=== PATIENT | male | born 1980 | race Caucasian/White ===

== ENCOUNTER 2016-08-26 16:07 | Emergency (ER) | payer SELFPAY ==
[2016-08-26 16:20] VITALS: RESP 18
[2016-08-26] MEDS ORDERED: ACETAMINOPHEN 325 MG TAB PO ONE (16:35)
[2016-08-26] MEDS ORDERED: IBUPROFEN 600 MG TAB PO ONE (16:35)
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
[2016-08-26] MEDS ORDERED: LETS SOLN TOPICAL 1 EA SYR TP ONE ×2 (16:36)
--- NOTE | 2016-08-26 17:00 | CPEKG ---
Heart Rate: 81 RR Interval: 741 P-R Interval: 156 QRSD Interval: 86 QT Interval: 364 QTC Interval: 423 P [place]: 69 QRS [place]: 67 T Wave [place]: 24 EKG Severity - NORMAL ECG - EKG Impression: SINUS RHYTHM Electronically Signed By: Shamir López 26-Aug-2016 17:01:05
[2016-08-26 17:03] LABS: % IMMATURE GRANULYOCYTES 0.2 % (0.0-1.1); ABSOLUTE IMMATURE GRANULOCYTES 0.01 10^3/uL (0.00-0.10); ADD DIFF? NO; ADD MORPH? NO; ADD SCAN? NO; ATYPICAL LYMPHOCYTE FLAG 10 (0-99); FRAGMENT RBC FLAG 0 (0-99); HEMATOCRIT 49.8 % (40.0-51.0); HEMOGLOBIN 17.1 g/dL (13.7-17.5); LEFT SHIFT FLG 0 (0-99); LIPEMIA HEMOLYSIS FLAG 90 (0-99); MEAN CELL HEMOGLOBIN 29.3 pg (27.9-34.1); MEAN CELL HEMOGLOBIN CONCENTR. 34.3 g/dL (32.4-36.7); MEAN CELL VOLUME 85.4 fL (81.5-99.8); MEAN PLATELET VOLUME 9.3 fL (8.7-11.7); PLATELET CLUMPS FLAG 0 (0-99); PLATELET COUNT 226 10^3/uL (150-400); RED BLOOD CELL COUNT 5.83 10^6/uL (4.40-6.38); RED CELL DISTRIBUTION WIDTH 13.2 % (11.5-15.2)
[2016-08-26 17:15] LABS: ANION GAP 18 mEq/L (8-16); CALCIUM 9.1 mg/dL (8.5-10.4); CARBON DIOXIDE 19 mEq/l (22-31); CHLORIDE 110 mEq/L (97-110); CREATININE 0.8 mg/dL (0.7-1.3); GLOMERULAR FILTRATION RATE > 60; GLUCOSE 82 mg/dL (70-100); POTASSIUM 4.2 mEq/L (3.5-5.2); SODIUM 147 mEq/L (134-144)
[2016-08-27 09:32] VITALS: BP 146/92; PULSE 98; TEMP 98.2; O2SAT 97
== END 2016-08-26 17:40 | disposition home or self-care (01) ==
DX: T21.22XA Burn of second degree of abdominal wall, initial encounter (principal); S00.81XA Abrasion of other part of head, initial encounter; F17.200 Nicotine dependence, unspecified, uncomplicated; W01.0XXA Fall on same level from slipping, tripping and stumbling without subsequent striking against object, initial encounter
CPT/HCPCS: 82947-QW

== ENCOUNTER 2016-12-25 15:29 | Emergency (ER) | payer MEDICAID ==
[2016-12-25] MEDS ORDERED: CEPHALEXIN 500 MG CAP PO ONE (15:56)
[2016-12-25 15:57] VITALS: BP 123/92; PULSE 115; RESP 16; TEMP 98.4; O2SAT 92
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
== END 2016-12-25 16:22 | disposition home or self-care (01) ==
LOC: CED 15:29
DX: T80.89XA Other complications following infusion, transfusion and therapeutic injection, initial encounter (principal); L03.114 Cellulitis of left upper limb; F17.200 Nicotine dependence, unspecified, uncomplicated; Y82.8 Other medical devices associated with adverse incidents

== ENCOUNTER 2017-03-03 04:42 | Emergency (ER) | payer MEDICAID ==
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
[2017-03-03] MEDS ORDERED: SKIN ADHESIVE (DERMABOND) 1 EACH TP ONE (06:03)
[2017-03-03 06:33] VITALS: BP 121/78; PULSE 84; RESP 16; TEMP 98.1; O2SAT 96
== END 2017-03-03 06:32 | disposition home or self-care (01) ==
LOC: EDUNIT#
PROC: 0HQ1XZZ Repair Face Skin, External Approach (ICD-10-PCS; principal; 2017-03-03)
DX: S01.81XA Laceration without foreign body of other part of head, initial encounter (principal); S16.1XXA Strain of muscle, fascia and tendon at neck level, initial encounter; W01.198A Fall on same level from slipping, tripping and stumbling with subsequent striking against other object, initial encounter; Y92.59 Other trade areas as the place of occurrence of the external cause; Y99.8 Other external cause status; F10.921 Alcohol use, unspecified with intoxication delirium; F19.10 Other psychoactive substance abuse, uncomplicated; F17.200 Nicotine dependence, unspecified, uncomplicated

== ENCOUNTER 2017-04-03 16:40 | Emergency (ER) | payer MEDICAID, OTHER ==
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
[2017-04-03 16:45] VITALS: TEMP 97.9
--- NOTE | 2017-04-03 17:32 | CPEKG ---
Heart Rate: 73 RR Interval: 822 P-R Interval: 136 QRSD Interval: 82 QT Interval: 416 QTC Interval: 459 P [place]: 71 QRS [place]: 72 T Wave [place]: 6 EKG Severity - NORMAL ECG - EKG Impression: SINUS RHYTHM Electronically Signed By: Elizabeth yL 03-Apr-2017 23:02:15
[2017-04-03 17:35] LABS: % IMMATURE GRANULYOCYTES 0.3 % (0.0-1.1); ABSOLUTE IMMATURE GRANULOCYTES 0.02 10^3/uL (0.00-0.10); ADD DIFF? NO; ADD MORPH? NO; ADD SCAN? NO; ATYPICAL LYMPHOCYTE FLAG 10 (0-99); FRAGMENT RBC FLAG 0 (0-99); HEMOGLOBIN 14.8 g/dL (13.7-17.5); LEFT SHIFT FLG 0 (0-99); LIPEMIA HEMOLYSIS FLAG 80 (0-99); MEAN CELL HEMOGLOBIN 29.1 pg (27.9-34.1); MEAN CELL HEMOGLOBIN CONCENTR. 33.6 g/dL (32.4-36.7); MEAN CELL VOLUME 86.6 fL (81.5-99.8); MEAN PLATELET VOLUME 9.1 fL (8.7-11.7); PLATELET CLUMPS FLAG 20 (0-99); PLATELET COUNT 254 10^3/uL (150-400); RED BLOOD CELL COUNT 5.08 10^6/uL (4.40-6.38); RED CELL DISTRIBUTION WIDTH 13.4 % (11.5-15.2)
[2017-04-03 17:47] LABS: ANION GAP 11 mEq/L (8-16); CALCIUM 9.6 mg/dL (8.5-10.4); CARBON DIOXIDE 26 mEq/l (22-31); CHLORIDE 101 mEq/L (97-110); CREATININE 0.7 mg/dL (0.7-1.3); GLOMERULAR FILTRATION RATE > 60; GLUCOSE 105 mg/dL (70-100); SODIUM 138 mEq/L (134-144)
[2017-04-03 17:59] LABS: TROPONIN I < 0.012 ng/mL (0.000-0.034)
[2017-04-03] MEDS ORDERED: IBUPROFEN 600 MG TAB PO ONE (19:02)
[2017-04-03 19:19] VITALS: BP 121/80; PULSE 18; RESP 74; O2SAT 97
== END 2017-04-03 19:19 | disposition home or self-care (01) ==
LOC: EDUNIT#
DX: R07.89 Other chest pain (principal); F17.200 Nicotine dependence, unspecified, uncomplicated

== ENCOUNTER 2017-08-25 22:47 | Emergency (ER) | payer MEDICAID, OTHER ==
[2017-08-26] MEDS ORDERED: CEPHALEXIN 500 MG CAP PO ONE (00:07)
[2017-08-26] MEDS ORDERED: TDAP ADULT 0.5 ML INJ (BOOSTRIX) IM ONE (00:07)
[2017-08-26] MEDS ORDERED: SULFAMETHOX/TMP 800/160 MG 1 TAB PO ONE (00:07)
--- NOTE | 2017-08-26 00:07 | EDPHY ---
General - History Smoking Status: Current every day smoker Time Seen by Provider: 08/25/17 23:58 Narrative: CHIEF COMPLAINT: Left arm pain, right hand pain HISTORY OF PRESENT ILLNESS: Patient complains of left arm pain and right hand pain. the left arm pain started 2 days ago after accidentally cutting it "on a liza nail outside." Pain was mild at 1st but now severe. Worse with palpation and movement. There is redness surrounding it. No pain with movement of the shoulder elbow. No fever chills. No numbness or tingling of the left arm or hand. Second complaint of right hand pain after "missing" when tempting to inject heroin in the right hand today. Minimally painful. No fever or chills from this. No difficulty using the hand or fingers. No trauma or injury otherwise. No other associated complaints or modifying factors. Uncertain when his last tetanus injection was REVIEW OF SYSTEMS: Ten systems reviewed and are negative unless otherwise noted in the HPI PCP: [facility] SPECIALISTS: None PAST MEDICAL HISTORY: Chronic pain on methadone PAST SURGICAL HISTORY: No recent surgeries SOCIAL HISTORY: Daily smoker. Occasional alcohol. Relapsed with heroin use over the past week FAMILY HISTORY: Noncontributory EXAMINATION General Appearance: Alert, no distress Head: normocephalic, atraumatic Eyes: Pupils equal and round, no conjunctival pallor or injection ENT, Mouth: Mucous membranes moist Neck: Normal inspection, supple, non-tender Respiratory: Lungs are clear to auscultation. No wheezing rhonchi or crackles Cardiovascular: Tachycardic rate. Regular rhythm Neurological: A&O, nonfocal, normal gait. Strength is symmetric in all 4 limbs. Symmetric interossei strength of both hands. Normal 2 point sensation on both hands. Skin: Warm and dry. There is large area of erythema to the left brachium on the anterolateral aspect. There is a central area of spontaneous drainage with moderate induration. Minimal fluctuance. Minimal warmth. There is no erythema or warmth to the elbow or shoulder. There is minimal erythema to the dorsum of the right hand. There is no lymphangitis or streaking. No fluctuance or crepitus to the right hand. Extremities: Tenderness of the left brachium in the right hand. There is no tenderness of the left wrist, elbow or shoulder. No tenderness of the lower right wrist or elbow. Range of motion is intact and minimally painful. No evidence of septic joint or tenosynovitis. Psychiatric: Mood and affect normal DIFFERENTIAL DIAGNOSES: Including but not limited to cellulitis, abscess, septic joint, tenosynovitis MDM: 12:10 a.m. Left brachium abscess and superficial right hand cellulitis. There is no evidence of tenosynovitis of the right hand. There is no evidence of septic elbow or shoulder on the left arm. Patient does admit to heroin injection of the right hand and this is at the site of the superficial infection. The left brachium is markedly erythematous with some induration and mild fluctuance. I will attempt to incise and drain the left brachium wound. I have ordered tetanus booster. I have ordered Bactrim and Keflex. 12:20 a.m. Patient has been evaluated by Dr. Richard. She is perform bedside ultrasound that does reveal small area of fluctuance that could be drained on the left brachium. She agrees with IV placement, IV clindamycin and incision and drainage. 1:10 a.m. I have performed an incision and drainage on the left brachium. There was approximately 5 mL as of purulence expressed. Tolerated well with no difficulty. He is neuro intact in the left upper extremity postprocedure. I have placed a cotton dressing and Kerlix. There was no packing left in place. The right hand cellulitis appears to be superficial without evidence of tenosynovitis or septic joint. He is currently receiving his IV clindamycin and plan for discharge home with Bactrim and Keflex. I instructed to return here in 48 hr for wound check unless he is seen by his primary care physician on Sunday. We discussed ED precautions for any worsening symptoms, painful joint, warmth to the joint, fever. We also discussed IV drug use and he reports that he has treatment range started on Sunday. He is comfortable with this plan and will be discharged home stable condition. PROCEDURE: Incision and Drainage Consent: Verbal Location: Left brachium Length: 2 cm with surrounding cellulitis Complexity: Simple Anesthesia: Local. 1% lidocaine with epinephrine. 10 mL Procedure description: After time-out and good anesthesia, the left brachium was prepped in common sterile fashion. ChloraPrep x2 to the affected area. A 15. Blade was used to open the existing drainage site. I was able to incise superficially through a small area of fluctuance. This was probed with sterile glove and loculations were broken. Minimal bleeding. Tolerated well. Dressed with 4x4s and Kerlix. Expressed: 5 mL purulence. Minimal serosanguineous drainage. Wound care: Routine as discussed. Packing: None Follow-up: 48 hr wound check SUPERVISION: Patient was evaluated and examined in conjunction with my secondary supervising physician as documented. We have both examined the patient. ([place]) Medical Decision Making: Bedside left forearm Ultrasound- performed and interpreted by me. Indication: Left forearm erythema and edema Findings: 1 cm fluid collections superficially with surrounding cobblestoning, no foreign body Impression: Small abscess with surrounding cellulitis and inflammation PHYSICIAN DOCUMENTATION: The patient was evaluated and managed by the Physician Cream Separator Operator. My co- signature indicates that I have reviewed this chart and I agree with the findings and plan of care as documented. I am the secondary supervising physician. (Ericka Richard) - Objective Vital Signs: Initial Vital Signs Temperature (C) 36.3 C 08/25/17 22:56 Heart Rate 116 H 08/25/17 22:56 Respiratory Rate 18 08/25/17 22:56 Blood Pressure 130/77 H 08/25/17 22:56 O2 Sat (%) 91 L 08/25/17 22:56 O2 Delivery Mode Room Air Allergies/Adverse Reactions: No Known Allergies Allergy (Verified 08/25/17 22:58) Home Medications: Medication Instructions Recorded Suboxone 12/25/16 Cephalexin [Keflex (*)] 500 mg PO QID #40 cap 08/26/17 Sulfamethox/Tmp 800/160 mg 1 tab PO BID 10 Days tab 08/26/17 [Bactrim Ds] Laboratory Results: Laboratory Results 08/26/17 00:36 08/26/17 00:36 08/26/17 08/26/17 00:36 00:36 WBC 10.67 10^3/uL H 10^3/uL (3.80-9.50) RBC 4.64 10^6/uL 10^6/uL (4.40-6.38) Hgb 13.8 g/dL g/dL (13.7-17.5) Hct 39.7 % L % (40.0-51.0) MCV 85.6 fL fL (81.5-99.8) MCH 29.7 pg pg (27.9-34.1) MCHC 34.8 g/dL g/dL (32.4-36.7) RDW 12.7 % % (11.5-15.2) Plt Count 233 10^3/uL 10^3/uL (150-400) MPV 8.7 fL fL (8.7-11.7) Neut % (Auto) 80.7 % H % (39.3-74.2) Lymph % (Auto) 11.5 % L % (15.0-45.0) [place] % (Auto) 7.0 % % (4.5-13.0) Eos % (Auto) 0.1 % L % (0.6-7.6) Baso % (Auto) 0.3 % % (0.3-1.7) Nucleat RBC Rel Count 0.0 % % (0.0-0.2) Absolute Neuts (auto) 8.61 10^3/uL H 10^3/uL (1.70-6.50) Absolute Lymphs (auto) 1.23 10^3/uL 10^3/uL (1.00-3.00) Absolute Monos (auto) 0.75 10^3/uL 10^3/uL (0.30-0.80) Absolute Eos (auto) 0.01 10^3/uL L 10^3/uL (0.03-0.40) Absolute Basos (auto) 0.03 10^3/uL 10^3/uL (0.02-0.10) Absolute Nucleated RBC 0.00 10^3/uL 10^3/uL (0-0.01) Immature Gran % 0.4 % % (0.0-1.1) Immature Gran # 0.04 10^3/uL 10^3/uL (0.00-0.10) Sodium 137 mEq/L mEq/L (135-145) Potassium 4.0 mEq/L mEq/L (3.5-5.2) Chloride 100 mEq/L mEq/L (97-110) Carbon Dioxide 25 mEq/l mEq/l (22-31) Anion Gap 12 mEq/L mEq/L (8-16) BUN 14 mg/dL mg/dL (7-23) Creatinine 0.6 mg/dL L mg/dL (0.7-1.3) Estimated GFR > 60 Glucose 131 mg/dL H mg/dL (70-100) Calcium 8.5 mg/dL mg/dL (8.5-10.4) Medications Given: Discontinued Medications Cephalexin (Keflex 500 Mg Prepack#4) 1 btl TAKEHOME EDNOW ONE PRN Reason: Protocol Stop: 08/26/17 01:01 Last Admin: 08/26/17 01:24 Dose: 1 btl Diphtheria/Tetanus/Acell Pertussis (Boostrix) 0.5 ml IM .ONCE ONE Stop: 08/26/17 00:08 Last Admin: 08/26/17 00:56 Dose: 0.5 ml Clindamycin Phosphate/Dextrose (Cleocin 900 Mg (Premix)) 50 mls @ 100 mls/hr IV ONCE ONE PRN Reason: Protocol Stop: 08/26/17 00:54 Last Admin: 08/26/17 00:52 Dose: 50 mls Sodium Chloride (Ns) 1,000 mls @ 0 mls/hr IV EDNOW ONE; Wide Open PRN Reason: Protocol Stop: 08/26/17 00:26 Last Admin: 08/26/17 00:56 Dose: 1,000 mls Trimethoprim/Sulfamethoxazole (Bactrim Ds Prepack#2) 1 btl TAKEHOME EDNOW ONE Stop: 08/26/17 01:00 Last Admin: 08/26/17 01:24 Dose: 1 btl Departure - Departure Disposition: Home, Routine, Self-Care Clinical Impression: Abscess of left upper extremity, Cellulitis of hand without finger or thumb, right Condition: Good Instructions: Cephalexin (By mouth), Sulfamethoxazole/Trimethoprim (By mouth), Abscess (ED), Incision and Drainage (ED) Additional Instructions: 1. Dressing changes as needed 2. Bactrim by mouth as prescribed for 10 days to completion 3. Keflex as prescribed for 10 days to completion 4. Return here or primary care physician in 48 hr for recheck 5. Return sooner for fever, worsening pain, redness or warmth to a joint Referrals: REFUGIO MARTINEZ [Other] - As per Instructions Stand Alone Forms: [facility] Prescriptions: Cephalexin [Keflex (*)] 500 mg PO QID #40 cap Sulfamethox/Tmp 800/160 mg [Bactrim Ds] 1 tab PO BID 10 Days tab
[2017-08-26] MEDS ORDERED: NS 1,000 ML IV ONE (00:25)
[2017-08-26] MEDS ORDERED: CLINDAMYCIN 900 MG/DEXTROSE 50 ML IV ONE (00:25)
[2017-08-26 00:53] LABS: PLATELET COUNT 233 10^3/uL (150-400)
[2017-08-26] MEDS ORDERED: SULFAMET/TMP DS PREPACK#2 BTL TAKEHOME ONE (00:59)
[2017-08-26] MEDS ORDERED: CEPHALEXIN 500MG PREPACK#4 BTL TAKEHOME ONE (01:00)
[2017-08-26 03:08] VITALS: BP 133/74; PULSE 96; RESP 16; TEMP 98.2; O2SAT 96
== END 2017-08-26 03:09 | disposition home or self-care (01) ==
PROC: 0H9CXZZ Drainage of Left Upper Arm Skin, External Approach (ICD-10-PCS; principal; 2017-08-25)
DX: L02.414 Cutaneous abscess of left upper limb (principal); L03.113 Cellulitis of right upper limb; E86.9 Volume depletion, unspecified; F17.200 Nicotine dependence, unspecified, uncomplicated; Z23 Encounter for immunization
CPT/HCPCS: 96374

== ENCOUNTER 2017-11-27 05:38 | Emergency (ER) | payer MEDICAID ==
[2017-11-27] MEDS ORDERED: diphenhydrAMINE 25 MG CAP PO ONE (06:05)
[2017-11-27] MEDS ORDERED: predniSONE 20 MG TAB ONE (06:05)
--- NOTE | 2017-11-28 05:22 | EDPHY ---
H & P Stated Complaint: body wide itching rashing since last pm Time Seen by Provider: 11/27/17 05:45 HPI/ROS: HPI CHIEF COMPLAINT: Rash, pruritic, HISTORY OF PRESENT ILLNESS: Patient is a 36-year-old male, history of IV drug abuse heroin, presents emergency room with a pruritic rash on his back and belly. It itches. States started earlier last night around 10:00 p.m.. He states he is not homeless but he did sleep outside last night. Denies any trouble breathing or trouble swallowing. Denies chest pain or shortness of breath. Denies fever. Past Medical History: Polysubstance abuse, IV heroin Past Surgical History: No recent surgery Social History: States he lives locally. Does IV heroin. Family History: Noncontributory ROS REVIEW OF SYSTEMS: A comprehensive 10 point review of systems is otherwise negative aside from elements mentioned in the history of present illness. Exam Constitutional triage nursing summary reviewed, vital signs reviewed, awake/ alert. Eyes normal conjunctivae and sclera, EOMI, PERRLA. HENT normal inspection, atraumatic, moist mucus membranes, no epistaxis, neck supple/ no meningismus, no raccoon eyes. Respiratory clear to auscultation bilaterally, normal breath sounds, no respiratory distress, no wheezing. Cardiovascular rate normal, regular rhythm, no murmur, no edema, distal pulses normal. Gastrointestinal soft, non-tender, no rebound, no guarding, normal bowel sounds, no distension, no pulsatile mass. Genitourinary no CVA tenderness. Musculoskeletal no midline vertebral tenderness, full range of motion, no calf swelling, no tenderness of extremities, no meningismus, good pulses, neurovascularly intact. Skin erythematous raised welts on the back, right flank, and abdomen consistent with either localized inflammation versus urticaria, pink, warm, & dry, no rash, skin atraumatic. Neurologic awake, alert and oriented x 3, AAOx3, moves all 4 extremities equally, motor intact, sensory intact, CN II-XII intact, normal cerebellar, normal vision, normal speech. Psychiatric normal mood/affect. Heme/Lymph/Immune no lymphadenopathy. Differential Diagnosis: Includes but is not limited to in a particular order contact dermatitis, bed bugs, contact dermatitis, allergic reaction Medical Decision Making: Plan for this patient p. O. Prednisone 60 mg and p.o. Benadryl. Re-evaluate. Re-evaluation: 0702: Patient re-evaluated at 7:00 a.m.. Resting comfortably. His rash has resolved. Received p. O. Benadryl p.o. Prednisone. It is no further signs of any allergic reaction. Recommend he takes Benadryl for next 3 days. Return precautions discussed. Source: Patient - Personal History Tetanus Vaccine Date: <10 YEARS - Medical/Surgical History Hx Asthma: No Hx Chronic Respiratory Disease: No Hx Diabetes: No Hx Cardiac Disease: No Hx Renal Disease: No Hx Cirrhosis: No Hx Alcoholism: Yes Hx HIV/AIDS: No Hx Splenectomy or Spleen Trauma: No Other PMH: chronic pain, heroin use, methodone use - Social History Smoking Status: Current every day smoker Constitutional: Initial Vital Signs Temperature (C) 36.3 C 11/27/17 05:43 Heart Rate 119 H 11/27/17 05:43 Respiratory Rate 16 11/27/17 05:43 Blood Pressure 109/81 H 11/27/17 05:43 O2 Sat (%) 96 11/27/17 05:43 O2 Delivery Mode Room Air Allergies/Adverse Reactions: No Known Allergies Allergy (Verified 08/25/17 22:58) Home Medications: Medication Instructions Recorded Suboxone 12/25/16 Cephalexin [Keflex (*)] 500 mg PO QID #40 cap 08/26/17 Sulfamethox/Tmp 800/160 mg 1 tab PO BID 10 Days tab 08/26/17 [Bactrim Ds] Departure - Departure Disposition: Home, Routine, Self-Care Clinical Impression: Rash Condition: Good Instructions: Acute Rash (ED) Referrals: NONE *PRIMARY CARE P,. [Primary Care Provider] - As per Instructions
[2017-11-28 05:34] VITALS: BP 112/75
--- NOTE | 2017-11-28 14:56 | EDPHY ---
[facility] Patient Name: TUAN LAWSON Rpt#: [id number] Unit Number: [id number] ER Physician: Teddy Echevarria MD Patient Type: REG ER Adm Date/Source: 11/27/17 EMR Discharge Date: Primary Carrier: [employer] DISPENSING SUPERVISOR EMERGENCY DEPARTMENT PROVIDER REPORT H P Time Seen by Provider: 11/27/17 07:22 HPI/ROS: HPI CHIEF COMPLAINT: Rash, pruritic, HISTORY OF PRESENT ILLNESS: Patient is a 36-year-old male, history of IV drug abuse heroin, presents emergency room with a pruritic rash on his back and belly. It itches. States started earlier last night around 10:00 p.m.. He states he is not homeless but he did sleep outside last night. Denies any trouble breathing or trouble swallowing. Denies chest pain or shortness of breath. Denies fever. Past Medical History: Polysubstance abuse, IV heroin Past Surgical History: No recent surgery Social History: States he lives locally. Does IV heroin. Family History: Noncontributory ROS REVIEW OF SYSTEMS: A comprehensive 10 point review of systems is otherwise negative aside from elements mentioned in the history of present illness. Exam Constitutional triage nursing summary reviewed, vital signs reviewed, awake/alert. Eyes normal conjunctivae and sclera, EOMI, PERRLA. HENT normal inspection, atraumatic, moist mucus membranes, no epistaxis, neck supple/ no meningismus, no raccoon eyes. Respiratory clear to auscultation bilaterally, normal breath sounds, no respiratory distress, no wheezing. Cardiovascular rate normal, regular rhythm, no murmur, no edema, distal pulses normal. Gastrointestinal soft, non-tender, no rebound, no guarding, normal bowel sounds, no distension, no pulsatile mass. Genitourinary no CVA tenderness. Musculoskeletal no midline vertebral tenderness, full range of motion, no calf swelling, no tenderness of extremities, no meningismus, good pulses, neurovascularly intact. Skin erythematous raised welts on the back, right flank, and abdomen consistent with either localized inflammation versus urticaria, pink, warm, dry, no rash, skin atraumatic. Neurologic awake, alert and oriented x 3, AAOx3, moves all 4 extremities equally, motor intact, sensory intact, CN II-XII intact, normal cerebellar, normal vision, normal speech. Psychiatric normal mood/affect. Heme/Lymph/Immune no lymphadenopathy. Differential Diagnosis: Includes but is not limited to in a particular order contact dermatitis, bed bugs, contact dermatitis, allergic reaction Medical Decision Making: Plan for this patient p. O. Prednisone 60 mg and p.o. Benadryl. Re- evaluate. Re-evaluation: 07: Patient re-evaluated at 7:00 a.m.. Resting comfortably. His rash has resolved. Received p. O. Benadryl p.o. Prednisone. It is no further signs of any allergic reaction. Recommend he takes Benadryl for next 3 days. Return precautions discussed. Source: Patient - Personal History Tetanus Vaccine Date: <10 YEARS - Medical/Surgical History Hx Asthma: No Hx Chronic Respiratory Disease: No Hx Diabetes: No Hx Cardiac Disease: No Hx Renal Disease: No Hx Cirrhosis: No Hx Alcoholism: Yes Hx HIV/AIDS: No Hx Splenectomy or Spleen Trauma: No Other PMH: chronic pain methodone use - Social History Smoking Status: Current every day smoker Allergies/Adverse Reactions: No Known Allergies Allergy (Verified 08/25/17 22:58) Home Medications: Medication Instructions Recorded Suboxone 12/25/16 Cephalexin [Keflex (*)] 500 mg PO QID #40 cap 08/26/17 Sulfamethox/Tmp 800/160 mg 1 tab PO BID 10 Days tab 08/26/17 [Bactrim Ds] Departure - Departure Disposition: Home, Routine, Self-Care Clinical Impression: Rash Condition: Good Instructions: Acute Rash (ED) Referrals: NONE *PRIMARY CARE P,. [Primary Care Provider] - As per Instructions *This report may have been compiled using a voice recognition system, and might contain typographical errors and blanks.* Teddy Echevarria MD 11/27/17 0748 <Electronically signed by Teddy Echevarria MD> 6 T: ELLY 11/27/[id number] CC: NONE *PRIMARY CARE PHYS ONLY*
== END 2017-11-27 07:15 | disposition home or self-care (01) ==
DX: R21 Rash and other nonspecific skin eruption (principal); F17.200 Nicotine dependence, unspecified, uncomplicated
CPT/HCPCS: J7512

== ENCOUNTER 2017-12-18 02:23 | Emergency (ER) | payer MEDICAID ==
[2017-12-18 02:32] VITALS: BP 120/81
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
== END 2017-12-18 03:22 | disposition home or self-care (01) ==
DX: S09.90XA Unspecified injury of head, initial encounter (principal); F17.200 Nicotine dependence, unspecified, uncomplicated; V18.9XXA Unspecified pedal cyclist injured in noncollision transport accident in traffic accident, initial encounter; Y92.410 Unspecified street and highway as the place of occurrence of the external cause; Y99.8 Other external cause status; Y93.89 Activity, other specified